=== PATIENT | female | born 1980 | race Caucasian/White ===

== ENCOUNTER → 2016-12-08 | Outpatient (CLI) | payer OTHER ==
[~2016-12-08] MED LIST: BENADRYL25 MG PO; CIPRO500 MG PO; CONTRAVE ER 8-1 EACH PO; MOTRIN IB200 MG PO; PAIN RELIEF500 M1 PO; PLAQUENIL200 M1 PO; PREFERA OB TAB1 EACH PO; PROTONIX40 MG PO; RESTASIS 0.05%1 VIAL IO; TYLENOL325 MG PO; ULTRAM50 MG PO; VITAMIN C500 M1 PO; VITAMIN D-32000 UNIT PO; VITAMIN E400 UNI2 PO; ZITHROMAX250 MG PO; ZOFRAN4 MG PO; ZYRTEC10 M1 PO
== END | disposition disaster alternative care site (69) ==
LOC: GBCOE 09:00
DX: Z12.31 Encounter for screening mammogram for malignant neoplasm of breast (principal)
CPT/HCPCS: G0202